=== PATIENT | male | born 1990 | race Two or more races ===

== ENCOUNTER 2017-08-27 12:49 | Emergency (ER) | payer MEDICAID ==
[~2017-08-27] VITALS: Ht 175.3 cm; Wt 81.6 kg
[2017-08-27 12:56] VITALS: BP 141/90
== END 2017-08-27 15:19 | disposition home or self-care (01) ==
LOC: ER 12:55
DX: S39.012A Strain of muscle, fascia and tendon of lower back, initial encounter (principal); W01.0XXA Fall on same level from slipping, tripping and stumbling without subsequent striking against object, initial encounter; Y93.17 Activity, water skiing and wake boarding; Y92.59 Other trade areas as the place of occurrence of the external cause; Y99.8 Other external cause status
CPT/HCPCS: 72100